=== PATIENT | female | born 2005 | race Caucasian/White ===

== ENCOUNTER 2024-01-09 10:13 | Day surgery (SDC) | payer MEDICAID, SELFPAY ==
[2024-01-09] VITALS (12 sets, daily range): BP systolic 96–121; BP diastolic 51–81; PULSE 54–91; RESP 16–18; TEMP 36.1–37.2; O2SAT 97–100; BMI 26.4
[2024-01-09] MEDS: sodium chloride 0.9% 1,000 ML 30 ML IV (10:35)
[2024-01-09] MEDS: scopolamine 1.5 Patch 1 PATCH TRANSDERMA (10:45)
[2024-01-09 10:47] LABS: OR HCG Qualitative Urine Negative (Negative)
--- NOTE | 2024-01-09 11:11 | ANES.PREANE2 ---
Pre-Anesthetic Assessment Height/Weight: Height 1.63 m Weight 69.853 kg Temp Pulse Resp BP Pulse Ox O2 Del Method 98.9 F 80 18 118/64 100 Room Air 01/09/24 10:54 01/09/24 10:54 01/09/24 10:54 01/09/24 10:54 01/09/24 10:54 01/09/24 10:37 Operation Date: 01/09/24 12:00 Proposed Procedures p [id number] lapa priscilla R10.9(Not Applicable) - Petar Sorensen DO Familial anesthetic complications: None Was Beta Janie taken within 24 hours: N/A Was Clonidine taken within 24 hours: N/A Last intake: Intake Last Liquid Date 01/08/24 Last Liquid Time 23:00 Last Solid Date 01/08/24 Last Solid Time 21:00 Social No alcohol and No tobacco Exam alert, oriented x 3, clear to auscultation bilaterally and regular rate & rhythm Airway Mallampati: Class I Dentition: full GI Gastroesophageal Reflux Disease Anesthetic Plan ASA status: 1 Anesthesia: General Risk of > 500 ml blood loss (7ml/kg in children): No Medications/Allergies Home Medications Medication Instructions Recorded Confirmed Last Taken Type norgestimate 0.25 mg-ethinyl 1 tab PO DAILY 08/18/21 01/08/24 01/09/24 History estradiol 35 mcg tablet (Sprintec (28)) pantoprazole 40 mg tablet,delayed 40 mg PO DAILY 11/27/23 01/08/24 01/09/24 History release Allergies Allergy/AdvReac Type Severity Reaction Status Date / Time No Known Allergies Allergy Verified 01/09/24 10:43 Current Medications Generic Name Dose Route Start Last Admin Trade Name Freq PRN Reason Stop Dose Admin Sodium Chloride 1,000 mls @ 30 mls/hr 01/09/24 10:30 01/09/24 10:35 Sodium Chloride 0.9% IV 01/10/24 10:29 30 mls/hr .Q24H ANABEL Administration PFSH Anesthesia Social History Smoking and tobacco/nicotine status: never used tobacco/nicotine Female Reproductive History Date of last menstrual period: 12/29/23 Data Anesthesia Cardiac Studies: No Data to Display
--- NOTE | 2024-01-09 11:13 | PM.HP ---
Providers/Chief Complaint Primary Care Provider: Lamar Cordova Chief Complaint: R10.9 History of Present Illness Sabi Lara is a 18 year old female Review of Systems General: Reports: 10 or more systems reviewed and unremarkable except in HPI and below Medications/Allergies Home Medications Medication Instructions Recorded Confirmed Last Taken Type norgestimate 0.25 mg-ethinyl 1 tab PO DAILY 08/18/21 01/08/24 01/09/24 History estradiol 35 mcg tablet (Sprintec (28)) pantoprazole 40 mg tablet,delayed 40 mg PO DAILY 11/27/23 01/08/24 01/09/24 History release Allergies Allergy/AdvReac Type Severity Reaction Status Date / Time No Known Allergies Allergy Verified 01/09/24 10:43 PFSH Acute PFSH: Social History Smoking and tobacco/nicotine status: never used tobacco/nicotine Female Reproductive History: Date of last menstrual period: 12/29/23 Vitals/I&O/Wt Last Vital Signs Temp 98.9 F 01/09/24 10:54 Pulse 80 01/09/24 10:54 Resp 18 01/09/24 10:54 BP 118/64 01/09/24 10:54 Pulse Ox 100 01/09/24 10:54 O2 Del Method Room Air 01/09/24 10:37 Weight last 48 hrs Weight 154 lb A&P Assessment and plan (1) Symptomatic cholelithiasis: Plan laparoscopic cholecystectomy Attestations Medical Necessity Statement*: Home Coding Level of Care Code Acute Code for [facility] Diagnoses Symptomatic cholelithiasis K80.20
[2024-01-09] MEDS: ceFAZolin 2,000 MG in sodium chloride 0.9% (plus) 50 ML 100 MG IV (11:17)
[2024-01-09] MEDS: lidocaine-epi 2% PF 1:200,000 20 mL SDV XX (11:36)
--- NOTE | 2024-01-09 11:59 | P.OP_ITS ---
Operative Report Date of procedure: January 09, 2024 Surgeon: Petar Sorensen DO Brief History: This very pleasant 18-year-old female with abdominal pain. She is diagnosed with symptomatic cholelithiasis. Laparoscopic cholecystectomy was indicated. The risk benefits were explained and documented. Procedure: Preoperative diagnosis: Symptomatic cholelithiasis Postoperative diagnosis: Same Procedure performed: Laparoscopic cholecystectomy Surgeon: Dr. Petar Sorensen DO Estimated blood loss: 5 mL Specimens: Gallbladder to pathology Complications: None apparent Description of procedure: Patient was wheeled into the operative room and placed on the OR table in a supine position. Abdomen was inspected prepped and draped in usual sterile fashion. Time-out was performed and all present were in agreement. A 15 blade scalp was used to make a stab incision in the left upper quadrant and intra- abdominal insufflation was achieved using a Veress needle. After localizing the tissue incisions were made and a 5 millimeter trocar was placed into the umbilicus as well as 2 in the right upper quadrant. A 12 millimeter trocar was placed in the epigastrium. Gallbladder was grasped and elevated. The triangle of Calot was carefully dissected using blunt dissection and electrocautery until the triangle of Calot clearly identified. The cystic duct was clipped proximally and double clipped distally. The duct was then ligated proximally. The cystic artery was doubly clipped and ligated. The gallbladder was then removed from the liver bed using electrocautery. The gallbladder was removed from the abdomen using an Endo-Catch bag through the epigastric incision. The liver bed was inspected and no bleeding was seen. The abdomen was irrigated and suctioned. All ports removed. Skin was washed and dried. Incisions were closed with 4-0 Monocryl in a subcuticular interrupted fashion. Twelve 0 nylon sutures were placed over the epigastric incision in a simple interrupted fashion. Skin glue was applied. Patient tolerated the procedure well.
[2024-01-09] MEDS: fentaNYL 50 mcg/mL INJ 2mL IVP (12:43)
[2024-01-09] MEDS: HYDROcodone-acetaminophen 7.5-325 mg Tablet 1 TAB PO (13:15)
--- NOTE | 2024-01-09 13:55 | ANE.PACU2 ---
Inpatient post-anesthesia follow up: Airway intact: Yes Vital signs: Temperature 97.1 F Pulse Rate 54 Respiratory Rate 18 Blood Pressure 96/65 Pulse Oximetry 99 Oxygen Delivery Me thod Room Air Oxygen Flow Rate 6 Fraction of Inspir ed Oxygen Hydration adequate: Yes Nausea and vomiting: No Pain level: 1 Mental status: Baseline
== END 2024-01-09 13:55 | disposition home or self-care (01) ==
PROVIDERS: PCP Nurse Practitioner Family; Visit Provider Surgery
PROC: 0FT44ZZ Resection of Gallbladder, Percutaneous Endoscopic Approach (ICD-10-PCS; CPT 47562; principal; 2024-01-09 12:00)
DX: K80.10 Calculus of gallbladder with chronic cholecystitis without obstruction (principal)
CPT/HCPCS: 47562; 84703; 88304; J0131; J0330; J0690; J1100; J1170; J1200; J1885; J2250; J2405; J2704; J2710; J3010; J3490; J7030